=== PATIENT | female | born 1945 | race Caucasian/White ===

== ENCOUNTER 2020-10-18 09:08 | Observation (INO) ==
[~2020-10-18 09:08] MED LIST: Buffered Lidocaine 1% SYRIN 1 ml INTRADERM ONE; Bupivacaine 0.5% SDV PF 30ML VIAL ONE; Famotidine IV 10 MG/ML 2 ml VIAL (20 mg) IV ONE; Lactated Ringers 1000 ml BAG 1,000 ML IV SCH; Sodium Citrate/Citric Acid LIQ 15 ML UDC PO ONE
[2020-10-18] MEDS ORDERED: Sodium Citrate/Citric Acid LIQ 15 ML UDC ONE (09:50)
[2020-10-18] MEDS ORDERED: Clindamycin 900 MG/D5W BAG 900 MG/50 ML BAG IVPB ONE (09:50)
[2020-10-18] MEDS ORDERED: Buffered Lidocaine 1% SYRIN 1 ml INTRADERM ONE (09:51)
[2020-10-18] MEDS ORDERED: Famotidine IV 10 MG/ML 2 ml VIAL (20 mg) ONE (09:51)
[2020-10-18] MEDS ORDERED: Midazolam 2 mg/2 ml VIAL 1 mg/ml 2 ml VIAL (2 mg) ONE (09:52)
[2020-10-18] MEDS ORDERED: Lidocaine 2% PF 5 ML VIAL ONE (09:54)
[2020-10-18] MEDS ORDERED: Lidocaine 1% MPF 5 ML VIAL ONE (10:00)
[2020-10-18] MEDS ORDERED: ROPIVACAINE 5 MG/ML 30 ML BTL (0.5%) ONE ×2 (10:00→11:34)
[2020-10-18] MEDS ORDERED: Dexamethasone IV 4 MG/ML VIAL 1 ml VIAL ONE (10:05)
[2020-10-18 10:35] LABS: INR 1.02 (0.82-1.09)
[2020-10-18] MEDS ORDERED: Naloxone 0.4 mg VIAL 0.4 mg/ml 1 ml VIAL IV PRN (14:21)
[2020-10-18] MEDS ORDERED: fentaNYL 100 mcg/2 ml 50 MCG/ML VIAL IV PRN (14:21)
[2020-10-18] MEDS ORDERED: Ondansetron 4 mg VIAL 2 MG/ML 2 ml VIAL IV PRN ×2 (14:21→15:13)
[2020-10-18] MEDS ORDERED: HYDROmorphone 1 MG/1 ML SYRINGE IV PRN (14:21)
[2020-10-18] MEDS ORDERED: Lactulose 30 ml UDC PO PRN (15:13)
[2020-10-18] MEDS ORDERED: diPHENhydraMINE 25 mg TAB PO PRN (15:13)
[2020-10-18] MEDS ORDERED: Magnesium Hydroxide LIQ 30 ML UDC PO PRN (15:13)
[2020-10-18] MEDS ORDERED: Ondansetron ODT 4 mg TAB 4 MG TAB PO PRN (15:13)
[2020-10-18] MEDS ORDERED: oxyCODONE/Acetamin 5/325 mg TAB PO PRN (15:13)
[2020-10-18] MEDS ORDERED: diPHENhydraMINE IV 50 MG/ML 1 ml VIAL (BENADRYL) IV PRN (15:13)
[2020-10-18] MEDS ORDERED: Morphine 2 MG/ML SYRINGE IV PRN (15:13)
[2020-10-18] MEDS: Lactated Ringers 1000 ml BAG 1,000 ML IV SCH (17:52)
[2020-10-18] MEDS ORDERED: CMC: Fenofibrate 145 mg TAB (NF) PO SCH ×2 (18:00→21:00)
[2020-10-18 18:08] LABS: Hepatitis B Surface Antigen Nonreactive (Nonreactive)
[2020-10-18 18:26] LABS: HIV 4th Generation Nonreactive (Nonreactive); Hepatitis C Antibody Negative (Negative)
[2020-10-18] MEDS: Magnesium Hydroxide LIQ 30 ML UDC PO SCH (21:37)
[2020-10-18] MEDS: Clindamycin 600 MG/D5W BAG 600 MG/50 ML BAG IV SCH (21:37)
[2020-10-19] MEDS: Lactated Ringers 1000 ml BAG 1,000 ML IV SCH (04:32)
[2020-10-19] MEDS: Clindamycin 600 MG/D5W BAG 600 MG/50 ML BAG IV SCH ×2 (04:34→12:54)
[2020-10-19 06:19] LABS: Hematocrit 30 % (35-47); Mean Platelet Volume 7.3 fL (7.4-10.4); Platelet Count 223 10^3/uL (150-450)
[2020-10-19 06:35] LABS: BUN/Creatinine Ratio 20.7 (8-20); Calcium 8.9 mg/dL (8.6-10.3); EGFR African American 82.7 (>60); EGFR Non-African American 68.3 (>60); Magnesium 1.7 mg/dL (1.9-2.7); Potassium 3.9 mmol/L (3.5-5.0)
[2020-10-19 07:56] VITALS: BP 114/54
[2020-10-19] MEDS ORDERED: Vitamin THERAPEUTIC TAB PO SCH (09:00)
[2020-10-19] MEDS: Magnesium Hydroxide LIQ 30 ML UDC PO SCH (09:33)
== END 2020-10-19 16:00 | disposition home or self-care (01) ==
LOC: AA 09:08 → INTOOBSV 09:08 → SSU 17:31
PROVIDERS: ADMIT Orthopaedic Surgery Adult Reconstructive Orthopaedic Surgery; ATTEND Orthopaedic Surgery Adult Reconstructive Orthopaedic Surgery

== ENCOUNTER 2024-01-18 07:11 | Inpatient (IN) ==
[2024-01-18 08:38] LABS: ABS Basophils 0.1 10^3/uL (0.0-0.1); ABS Lymphocytes 1.4 10^3/uL (1.0-4.8); ABS Monocytes 0.9 10^3/uL (0.0-0.9); ABS Neutrophils 9.6 10^3/uL (1.5-7.6); ABS Nucleated RBC 0.01 10^3/ul; Hematocrit 34.8 % (35-45); Hemoglobin 11.8 g/dL (11.5-14.3); Lymphocyte % 11.4 %; Mean Corpuscular Hemoglobin 28.5 pg (27-33); Mean Corpuscular Hgb Conc 33.9 g/dL (31-36); Mean Corpuscular Volume 84.1 fL (80-97); Mean Platelet Volume 7.5 fL (7.5-11.2); Platelet Count 261 10^3/uL (150-450); Red Blood Count 4.14 10^6/uL (3.63-4.92); Red Cell Distribution Width 13.6 % (12-17)
[2024-01-18 08:42] LABS: Albumin 4.4 g/dL (3.2-5.2); Albumin/Globulin Ratio 1.3 (1-3); C Reactive Protein 124.65 mg/L (<8.01); Calcium 9.7 mg/dL (8.6-10.3); Creatinine, Serum 1.05 mg/dL (0.51-0.95); Globulin 3.3 g/dL (2-4); Potassium 4.1 mmol/L (3.5-5.0); Total Bilirubin 0.9 mg/dL (0.2-1.0); Total Protein 7.7 g/dL (6.4-8.9); eGFR CKD-EPI 55.1 (>60)
[2024-01-18] MEDS: HYDROmorphone 1 MG/1 ML SYRINGE IV ONE (09:58)
[2024-01-18] MEDS: Ondansetron 4 mg VIAL 2 MG/ML 2 ml VIAL IV ONE (09:59)
[2024-01-18] MEDS: Lactated Ringers 1000 ml BAG 1,000 ML IV ONE (09:59)
[2024-01-18] MEDS: Iodixanol (CONTRAST) 320 MG/ML 100 ML SDV IV ONE (13:43)
[2024-01-18 14:07] LABS: Urine Appearance Clear; Urine Bilirubin Negative (Negative); Urine Blood Negative (Negative); Urine Color Yellow; Urine Glucose Trace (Negative); Urine Ketones Negative (Negative); Urine Nitrite Negative (Negative); Urine Protein Trace (Negative); Urine Specific Gravity 1.021 (1.002-1.030); Urine Urobilinogen Negative (Negative); Urine pH 5.5 (5.0-8.0)
[2024-01-18 14:21] LABS: Urine Bacteria Absent /HPF (Absent); Urine Red Blood Cell Trace(0-2/hpf) /HPF (0-Trace); Urine Squamous Epithelial Cell Present /HPF (Absent); Urine White Blood Cell 2+(11-20/hpf) /HPF (0-Trace)
[2024-01-18] MEDS ORDERED: Ondansetron 4 mg VIAL 2 MG/ML 2 ml VIAL IV PRN (15:11)
[2024-01-18] MEDS: HYDROmorphone 0.5 MG/0.5 ML SYRINGE IV ONE (15:14)
[2024-01-18] MEDS: cefTRIAXone 1 gm/50 mL D5W 1 GM/50 ML BAG IV ONE (15:40)
[2024-01-18] MEDS ORDERED: Naloxone Nasal Spray 4 MG/0.1 ML NASAL.SPR INTRANASAL PRN (15:53)
[2024-01-18] MEDS: Lactated Ringers 1000 ml BAG 1,000 ML IV SCH ×2 (16:26→16:30)
[2024-01-18] MEDS: metroNIDAZOLE IV 500 MG/100ML 500 MG/100 ML BAG IVPB ONE (16:28)
[2024-01-18 17:02] LABS: Activated Partial Thrombo Time 35.7 seconds (26.0-38.0); INR 2.21 (0.83-1.13)
[2024-01-18] MEDS ORDERED: Senna TAB 8.6 mg TAB PO PRN (17:11)
[2024-01-18] MEDS ORDERED: Magnesium Hydroxide LIQ 30 ML UDC PO PRN (17:11)
[2024-01-18] MEDS: Piperacillin/Tazobac 3.375 BAG 3.375 GM/100 ML BAG IV ONE (17:32)
[2024-01-18] MEDS ORDERED: Zosyn per Pharmacy NOTE FOLLOW UP SCH (18:00)
[2024-01-18] MEDS: Acetaminophen IV 1 GM/100ML 1,000 MG/100 ML BAG IV PRN (21:45)
[2024-01-18] MEDS: CMCS: Fenofibrate 145 mg TAB (NF) PO SCH (21:49)
[2024-01-19] MEDS: metroNIDAZOLE IV 500 MG/100ML 500 MG/100 ML BAG IVPB SCH (00:51)
[2024-01-19 06:26] LABS: Hemoglobin 11.1 g/dL (11.5-14.3); Mean Corpuscular Hemoglobin 28.6 pg (27-33); Mean Corpuscular Hgb Conc 33.7 g/dL (31-36); Mean Corpuscular Volume 84.8 fL (80-97); Mean Platelet Volume 7.4 fL (7.5-11.2); Platelet Count 263 10^3/uL (150-450); Red Blood Count 3.89 10^6/uL (3.63-4.92); Red Cell Distribution Width 13.6 % (12-17); White Blood Count 19.7 10^3/uL (3.8-11.8)
[2024-01-19 06:30] LABS: INR 1.71 (0.83-1.13)
[2024-01-19 07:02] LABS: Creatinine, Serum 0.84 mg/dL (0.51-0.95); Potassium 4.1 mmol/L (3.5-5.0)
[2024-01-19 07:12] LABS: ABS Basophils 0.1 10^3/uL (0.0-0.1); ABS Lymphocytes 1.2 10^3/uL (1.0-4.8); ABS Monocytes 1.9 10^3/uL (0.0-0.9); ABS Neutrophils 16.6 10^3/uL (1.5-7.6)
[2024-01-19] MEDS: Phytonadione IV (Adult) 5 MG in NS 0.9% 50 ML 50 ML IV ONE (11:42)
[2024-01-19] MEDS: cefTRIAXone 1 gm/50 mL D5W 1 GM/50 ML BAG IV SCH (15:08)
[2024-01-19] MEDS: HYDROmorphone 0.5 MG/0.5 ML SYRINGE IV PRN (22:15)
[2024-01-19] MEDS: Prochlorperazine 5 mg/ml 2 ml VIAL (10 mg) IV PRN (22:54)
[2024-01-20 05:53] LABS: INR 1.47 (0.83-1.13)
[2024-01-20 05:55] LABS: ABS Lymphocytes 1.2 10^3/uL (1.0-4.8); ABS Neutrophils 11.8 10^3/uL (1.5-7.6); Eosinophil % 0.3 %; Hematocrit 29.4 % (35-45); Lymphocyte % 8.3 %; Mean Corpuscular Hemoglobin 28.6 pg (27-33); Mean Platelet Volume 7.6 fL (7.5-11.2); Platelet Count 250 10^3/uL (150-450); Red Cell Distribution Width 13.7 % (12-17)
[2024-01-20 06:32] LABS: Calcium 8.7 mg/dL (8.6-10.3); Creatinine, Serum 0.82 mg/dL (0.51-0.95); Magnesium 1.9 mg/dL (1.9-2.7); Potassium 3.9 mmol/L (3.5-5.0); eGFR CKD-EPI 74.1 (>60)
[2024-01-20] MEDS ORDERED: Dexamethasone IV 4 MG/ML VIAL 1 ml VIAL ONE (10:26)
[2024-01-20] MEDS ORDERED: Ondansetron 4 mg VIAL 2 MG/ML 2 ml VIAL ONE (10:26)
[2024-01-20] MEDS ORDERED: Lidocaine 2% PF 5 ML VIAL ONE (10:26)
[2024-01-20] MEDS ORDERED: Propofol 10 MG/ML 20 ML BTL ONE (10:28)
[2024-01-20] MEDS ORDERED: Bupivacaine 0.5% SDV PF 30ML VIAL ONE (10:35)
[2024-01-20] MEDS ORDERED: Midazolam 2 mg/2 ml VIAL 1 mg/ml 2 ml VIAL (2 mg) ONE (10:39)
[2024-01-20] MEDS ORDERED: fentaNYL 100 mcg/2 ml 50 MCG/ML VIAL ONE (10:39)
[2024-01-20] MEDS ORDERED: Buffered Lidocaine 1% SYRIN 1 ml ONE (11:24)
[2024-01-20] MEDS ORDERED: Rocuronium 50 mg VIAL 10 mg/ml 5 ml VIAL (50 mg) ONE (11:27)
[2024-01-20] MEDS ORDERED: HYDROmorphone 0.5 MG/0.5 ML SYRINGE ONE ×2 (12:23→12:57)
[2024-01-20] MEDS ORDERED: Acetaminophen IV 1 GM/100ML 1,000 MG/100 ML BAG IV PRN (12:42)
[2024-01-20] MEDS ORDERED: Ondansetron 4 mg VIAL 2 MG/ML 2 ml VIAL IV PRN (12:42)
[2024-01-20] MEDS ORDERED: Naloxone 0.4 mg VIAL 0.4 mg/ml 1 ml VIAL IV PRN (12:42)
[2024-01-20] MEDS ORDERED: fentaNYL 100 mcg/2 ml 50 MCG/ML VIAL IV PRN (12:42)
[2024-01-20] MEDS ORDERED: HYDROmorphone 1 MG/1 ML SYRINGE IV PRN (12:42)
[2024-01-21 05:23] LABS: ABS Lymphocytes 1.2 10^3/uL (1.0-4.8); ABS Monocytes 0.9 10^3/uL (0.0-0.9); ABS Neutrophils 10.1 10^3/uL (1.5-7.6); Eosinophil % 0.1 %; Hematocrit 28.4 % (35-45); Hemoglobin 9.6 g/dL (11.5-14.3); Lymphocyte % 9.8 %; Mean Corpuscular Hemoglobin 28.6 pg (27-33); Mean Corpuscular Hgb Conc 33.8 g/dL (31-36); Mean Corpuscular Volume 84.7 fL (80-97); Mean Platelet Volume 7.7 fL (7.5-11.2); Platelet Count 277 10^3/uL (150-450); Red Blood Count 3.35 10^6/uL (3.63-4.92); Red Cell Distribution Width 13.8 % (12-17); White Blood Count 12.2 10^3/uL (3.8-11.8)
[2024-01-21 06:01] LABS: Calcium 8.6 mg/dL (8.6-10.3); Creatinine, Serum 0.76 mg/dL (0.51-0.95); Potassium 4.3 mmol/L (3.5-5.0); eGFR CKD-EPI 81.2 (>60)
[2024-01-21] MEDS: Senna TAB 8.6 mg TAB PO SCH (21:28)
[2024-01-22] MEDS: Polyethylene Glycol 3350 17 GM PACKET PO PRN (06:01)
[2024-01-22 06:50] LABS: ABS Eosinophils 0.2 10^3/uL (0.0-0.5); ABS Lymphocytes 1.5 10^3/uL (1.0-4.8); ABS Monocytes 0.8 10^3/uL (0.0-0.9); ABS Neutrophils 6.1 10^3/uL (1.5-7.6); Eosinophil % 2.5 %; Hematocrit 29.4 % (35-45); Hemoglobin 9.9 g/dL (11.5-14.3); Lymphocyte % 17.4 %; Mean Corpuscular Hemoglobin 28.6 pg (27-33); Mean Corpuscular Hgb Conc 33.5 g/dL (31-36); Mean Corpuscular Volume 85.3 fL (80-97); Mean Platelet Volume 7.6 fL (7.5-11.2); Platelet Count 325 10^3/uL (150-450); Red Blood Count 3.44 10^6/uL (3.63-4.92); White Blood Count 8.7 10^3/uL (3.8-11.8)
[2024-01-22 07:05] LABS: Calcium 8.6 mg/dL (8.6-10.3); Creatinine, Serum 0.81 mg/dL (0.51-0.95); Magnesium 1.8 mg/dL (1.9-2.7); eGFR CKD-EPI 75.2 (>60)
[2024-01-23 10:11] VITALS: BP 128/70
== END 2024-01-23 13:39 | disposition home or self-care (01) | DRG 854 ==
LOC: EDHOLD 07:11 → ED 07:11 → SSU 19:40
PROVIDERS: ADMIT Internal Medicine; ATTEND Internal Medicine